=== PATIENT | female | born 1995 | race Two or more races ===

== ENCOUNTER 2021-02-12 12:48 | Emergency (ER) | payer OTHER ==
[~2021-02-12] VITALS: Ht 154.9 cm; Wt 68.9 kg
== END 2021-02-12 15:15 | disposition home or self-care (01) ==
LOC: ER 12:48
DX: O21.0 Mild hyperemesis gravidarum (principal); O26.891 Other specified pregnancy related conditions, first trimester; Z3A.09 9 weeks gestation of pregnancy

== ENCOUNTER 2021-03-20 14:03 | Emergency (ER) | payer OTHER ==
[~2021-03-20] VITALS: Ht 154.9 cm; Wt 69.9 kg
[2021-03-20] MEDS ORDERED: PRENATALES (14:34)
== END 2021-03-20 20:43 | disposition home or self-care (01) ==
LOC: ER 14:03
DX: O26.892 Other specified pregnancy related conditions, second trimester (principal); Z3A.14 14 weeks gestation of pregnancy; R10.2 Pelvic and perineal pain